=== PATIENT | female | born 1965 | race Caucasian/White ===

== ENCOUNTER 2021-02-25 16:47 | Emergency (ER) | payer OTHER ==
[2021-02-25 20:06] LABS: HEMOGLOBIN 13.7 gm/dl (12.3-15.3); RED BLOOD COUNT 4.37 M/UL (4.00-5.10); WHITE BLOOD COUNT 9.5 K/UL (4.5-11.0)
[2021-02-25 20:28] LABS: BUN/CREATININE RATIO 19 (0-10)
[2021-02-25] MEDS ORDERED: K-TAB ER10 MEQ PO (23:42)
[2021-02-25] MEDS ORDERED: LODINE CAP 300300 MG PO (23:42)
[2021-02-25] MEDS ORDERED: ZOFRAN ODT 4 MG4 MG PO (23:42)
== END 2021-02-26 00:35 | disposition home or self-care (01) ==
LOC: ER1 16:47
PROVIDERS: Physician Assistant
DX: E87.6 Hypokalemia (principal); Z20.822 Contact with and (suspected) exposure to COVID-19; E11.9 Type 2 diabetes mellitus without complications
CPT/HCPCS: 80053; 81001; 82436; 82550; 82553; 83874; 83935; 84133; 84300; 84484; 85025; 85652; 86140; 87086; 93005; 96374; 96375; 99283; J1885; J2405; U0002

== ENCOUNTER 2021-04-04 22:17 | Emergency (ER) | payer OTHER ==
[~2021-04-04] VITALS: Ht 160 cm; Wt 88.5 kg
[~2021-04-04 22:17] MED LIST: K-TAB ER10 MEQ PO; LODINE CAP 300300 MG PO; ZOFRAN ODT 4 MG4 MG PO
== END 2021-04-05 04:41 | disposition home or self-care (01) ==
LOC: ER1 22:17
DX: U07.1 COVID-19 (principal); Z23 Encounter for immunization; E11.9 Type 2 diabetes mellitus without complications
CPT/HCPCS: 99283; M0245; Q0177; U0002